=== PATIENT | male | born 1975 | race Hispanic/Latino ===

== ENCOUNTER 2024-11-05 11:03 | Emergency (ER) | payer BC ==
[~2024-11-05] VITALS: Ht 167.6 cm; Wt 83.0 kg
[~2024-11-05 11:03] MED LIST: ASPI-1005 PO; ATOR40TA69 PO; FURO20TA6 PO; GABA100C PO; GLYB-173 PO; LISI2.5T13 PO; METO25 PO
[2024-11-05 11:04] VITALS: TEMP 98.3
--- NOTE | 2024-11-05 11:11 | ERN ---
ED Note History of Present Illness Stated Complaint: HEADACHE Chief Complaint: Headache Time Seen by MD: 11:11 Dictation: PATIENT IS A 49-YEAR-OLD MALE COMING IN VIA EMS WITH COMPLAINTS OF RIDING IN A TRUCK WITH HIS BOSS THIS MORNING WHEN HE FELT DIZZY. NO CHEST PAIN NO BACK PAIN NO SOB HE DOES STATE HE HAS A MILD OCCIPITAL HEADACHE. STATES HE WAS CONCERNED BECAUSE HE HAD OPEN HEART SURGERY AT [facility] [place] TWO MONTHS AGO AND WANTED TO BE EVALUATED. HE HAS NOT TAKEN ANYTHING PRIOR TO ARRIVAL FOR PAIN, STATES HE IS COMPLIANT WITH HIS MEDICATIONS INCLUDING HIS DIABETIC MEDS. NIH IS 0 ON APPROACH. Allergies: Coded Allergies: No Known Drug Allergies (Verified Allergy, Unknown, 08/28/24) Home Meds Active Scripts Metoprolol Tartrate (Lopressor) 25 Mg Tab, 12.5 MG PO BID, #60 TAB 0 Refills Prov:SALOMÓN SWANSON MD 09/08/24 Gabapentin (Neurontin) 100 Mg Capsule, 100 MG PO TID, #90 CAP 0 Refills Prov:SALOMÓN SWANSON MD 09/08/24 Furosemide (Lasix 20Mg Tab) 20 Mg Tablet, 20 MG PO Q12H, #60 TAB 0 Refills Prov:SALOMÓN SWANSON MD 09/08/24 Atorvastatin Calcium (LIPITOR) 40 Mg Tablet, 40 MG PO HS, #30 TAB 0 Refills Prov:SALOMÓN SWANSON MD 09/08/24 Aspirin (ASPIRIN 81MG CHEW TAB) 81 Mg Tab.chew, 81 MG PO DAILY, #30 TAB.CHEW 0 Refills Prov:SALOMÓN SWANSON MD 09/08/24 Reported Medications Lisinopril (Lisinopril) 2.5 Mg Tablet, 1 TAB PO DAILY 08/29/24 Glyburide/Metformin HCl (Glyburide-Metformin 5-500 mg) 5 Mg-500 Mg Tablet, 1 TAB PO DAILY 08/29/24 Past Medical History Past Medical History: CAD, Diabetes-Type II Surgical History: None RN Note Reviewed/Agreed w/PFSH: Yes Review of System Dictation CONSTITUTIONAL: NEGATIVE EXCEPT FOR HPI HEAD/FACE: NEGATIVE EXCEPT FOR HPI EENT: NEGATIVE EXCEPT FOR HPI RESPIRATORY: NEGATIVE EXCEPT FOR HPI GASTROINTESTINAL/ABDOMINAL: NEGATIVE EXCEPT FOR HPI GENITOURINARY: NEGATIVE EXCEPT FOR HPI MUSCULOSKELETAL: NEGATIVE EXCEPT FOR HPI INTEGUMENTARY: NEGATIVE EXCEPT FOR HPI NEUROLOGICAL/PSYCH: NEGATIVE EXCEPT FOR HPI DIZZINESS/OCCIPITAL HEADACHE HEMATOLOGIC/LYMPHATIC: NEGATIVE EXCEPT FOR HPI ALL SYSTEMS NEGATIVE, EXCEPT NOTED ABOVE. 13 POINT REVIEW OF SYSTEMS ASSESSED AND ALL NEGATIVE EXCEPT FOR ABOVE. Initial Vital Sign VS Vital Signs Date Time Temp Pulse Resp B/P (MAP) Pulse Ox O2 Delivery O2 Flow Rate FiO2 11/05/24 11:04 98.2 78 18 133/77 97 Room Air 0 11/05/24 12:12 21 Physical Exam Dictation VITAL SIGNS REVIEWED GENERAL APPEARANCE: ALERT, ORIENTED X 3, MILD ACUTE DISTRESS, WELL DEVELOPED, NOURISHED. HEAD AND FACE: NON-TRAUMATIC. EYES: PERRL, PINK CONJUNCTIVAS, EYELID NO TRAUMA, ANTERIOR CHAMBER WITH ARCUS SENILIS. EARS: PINNAS INTACT AND NO SIGNS OF TRAUMA OR ERYTHEMA EAR CANALS CLEAR AND NO DISCHARGE TM NO ERYTHEMA NOSE: NO DISCHARGE, NO BLEEDING. OROPHARYNX: MOUTH NORMAL, TONGUE PINK, PHARYNX CLEAR,NO ERYTHEMA, TONSILS NO EXUDATES, NO ABSCESSES NOTED, MUCOUS MEMBRANE MOIST NECK: SUPPLE, NON-TENDER, NO THYROMEGALY, NO MASSES, NO JVD, NO BRUITS BREAST:DEFERRED CHEST:NO TENDERNESS, NO CREPITUS, NO PARADOXICAL MOVEMENT, NO RETRACTIONS LUNGS:CLEAR, WELL-VENTILATED, SYMMETRIC, NO RALES, NO WHEEZING, NO RHONCHI, NO STRIDOR, GOOD BREATH SOUNDS BILATERALLY HEART: REGULAR RATE, REGULAR RHYTHM, NO MURMUR, NO GALLOPS VASCULAR: NO PERIPHERAL EDEMA, ABDOMEN: SOFT, POSITIVE BOWEL SOUNDS, NONDISTENDED, NO GUARDING, NONTENDER, NO REBOUND, NO MASSES NO HEPATOMEGALY, NO SPLENOMEGALY, NO PALMER'S SIGN, NO HERNIAS. RECTAL: DEFERRED GENITAL: DEFERRED NEUROLOGICAL: NORMAL SPEECH, MOTOR FUNCTION INTACT, SENSORY FUNCTION INTACT NIH IS 0, INTACT MUSCULOSKELETAL: NECK NONTENDER, FULL RANGE OF MOTION, BACK NONTENDER, FULL RANGE OF MOTION, EXTREMITIES: NONTENDER, FULL RANGE OF MOTION SKIN: COLOR PINK, DRY, NO TURGOR, NO RASH, NO LACERATIONS, NO ABRASIONS, NO CONTUSIONS. LYMPHATIC: DEFERRED Results (Laboratory/Radiology) Laboratory/Radiology Laboratory Tests Test 11/05/24 10:20 White Blood Count 8.2 K/uL (4.8-10.8) Red Blood Count 4.53 MIL/uL (4.50-6.20) Hemoglobin 13.4 g/dL (14.0-18.0) L Hematocrit 39.4 % (42-54) L Mean Corpuscular Volume 87.0 fL (79-99) Mean Corpuscular Hemoglobin 29.6 pg (27.0-33.0) Mean Corpuscular Hemoglobin Concent 34.0 g/dL (32.0-36.0) Red Cell Distribution Width 12.7 % (11.0-15.5) Platelet Count 213 K/uL (130-400) Mean Platelet Volume 10.2 fL (7.5-10.5) Immature Granulocyte % (Auto) 0.4 % (0-1) Neutrophils (%) (Auto) 63.5 % (40.0-77.0) Lymphocytes (%) (Auto) 20.5 % (21.0-51.0) L Monocytes (%) (Auto) 9.0 % (3.0-13.0) Eosinophils (%) (Auto) 6.1 % (0.0-8.0) Basophils (%) (Auto) 0.5 % (0.0-5.0) Neutrophils # (Auto) 5.2 K/uL (1.8-7.7) Lymphocytes # (Auto) 1.7 K/uL (1.0-4.8) Monocytes # (Auto) 0.7 K/uL (0.1-1.0) Eosinophils # (Auto) 0.50 K/uL (0.00-0.70) Basophils # (Auto) 0.04 K/uL (0.00-0.20) Absolute Immature Granulocyte (auto 0.03 K/uL (0-1) Nucleated Red Blood Cells 0.0 % (0.0-0.19) Sodium Level 140 mmol/L (136-145) Potassium Level 3.9 mmol/L (3.5-5.1) Chloride Level 106 mmol/L (101-111) Carbon Dioxide Level 26 mmol/L (21-32) Blood Urea Nitrogen 20 mg/dL (7-18) H Creatinine 1.1 mg/dL (0.5-1.3) Glomerular Filtration Rate Calc 83 mL/min (>90) Random Glucose 196 mg/dL (70-105) H Total Calcium 9.2 mg/dL (8.5-10.1) Magnesium Level 1.80 mg/dL (1.80-2.40) Troponin I High Sensitivity 11 ng/L (4-75) 1202/CHEST X-RAY NEGATIVE Labs Reviewed?: Yes EKG Comment: EKG SINUS RHYTHM/HEART RATE 76/AXIS NORMAL/NONSPECIFIC CHANGES TO LEADS TWO AND THREE ED Course ED Course Orders Procedure Category Date Status Time Acetaminophen 500mg PHA 11/05/24 Complete Tab (Tylenol 500mg T 11:30 Cbc With Differential LAB 11/05/24 Complete 11:08 12 Lead Ekg Tracing- EKG 11/05/24 Complete Technical 11:08 Magnesium LAB 11/05/24 Complete 11:08 Troponin I High LAB 11/05/24 Complete Sensitivity 11:08 Basic Metabolic Panel LAB 11/05/24 Complete 11:08 Chest 1vw RAD 11/05/24 Taken 11:08 12 Lead Ekg Tracing- EKG 11/05/24 Logged Technical 11:08 Urinalysis Profile LAB 11/05/24 Logged 11:08 Current Medications Medications (Trade) Dose Ordered Sig/Gautam Route PRN Reason Start Time Stop Time Status Last Admin Dose Admin Acetaminophen (TYLenol 500MG TAB) 1,000 mg ONCE ONCE PO 11/05/24 11:30 11/05/24 11:31 DC 11/05/24 11:12 Vital Signs Date Time Temp Pulse Resp B/P (MAP) Pulse Ox O2 Delivery O2 Flow Rate FiO2 11/05/24 12:12 74 16 149/88 97 Room Air* 0 21 11/05/24 11:04 98.2 78 18 133/77 97 Room Air 0 1235/PATIENT NEUROLOGICALLY AND HEMODYNAMICALLY STABLE. STATES THE SENSATION HE WAS FEELING WHEN HE WAS IN THE TRUCK THIS MORNING IS NOW COMPLETELY RESOLVED. HE IS AWARE HE HAS NEGATIVE CARDIAC WORKUP HYPERGLYCEMIC HOWEVER HAS NOT TAKEN HIS GLIPIZIDE THIS MORNING OR EATEN. PATIENT WAS STRONGLY ADVISED TO LEAVE YOUR SEE HIS PRIMARY CARE DOCTOR TOMORROW. TAKE HIS DIABETIC MEDS DIRECTED WITH FOOD THIS MORNING. ALL QUESTIONS ANSWERED HEART Score Response (Comments) Value EKG: Repolarization changes 1 Age: 45-65yrs (+1) 1 Risk Factors: 1-2 risk factors (+1) 1 Initial Troponin: Normal limit (0) 0 Total 3 Medical Decision Making MDM MDM: DIFFERENTIAL DIAGNOSIS: ACS/AMI/ARRHYTHMIA/ELECTROLYTE IMBALANCE/DEHYDRATION/NEAR-SYNCOPE RATIONALE: TESTS CONSIDERED AND ORDERED SECONDARY TO SHARED DECISION MAKING INCLUDE: EKG/LABS PREVIOUS OUTSIDE RECORDS REVIEWED: OLD ER VISITS. RISK OF COMPLICATION AND/OR MORBIDITY OR MORTALITY OF PATIENT MANAGEMENT: NONE MEDICATIONS-PER MEDICATION RECONCILIATION NEED FOR HOSPITALIZATION: PATIENT DOES NOT MEET CRITERIA FOR HOSPITALIZATION. NONE NEED FOR EMERGENCY MAJOR/MINOR SURGERY: NO THERE ARE NO SOCIAL CONCERNS WITH THIS PATIENT. PRESCRIPTION DRUG MANAGEMENT NONE PRESCRIPTIONS WILL INCLUDE SYMPTOMATIC CARE PATIENT'S PRIOR EXTERNAL MEDICAL RECORDS FROM OTHER ER VISITS WERE REVIEWED BY ME INDICATED. PRIOR TESTING AND RESULTS FROM PREVIOUS VISITS WERE REVIEWED. PRIOR TESTS WERE TAKEN INTO ACCOUNT WITH MEDICAL DECISION MAKING AND RESOURCE UTILIZATION, INDEPENDENT HISTORIAN/HISTORIANS WERE USED TO OBTAIN COMPLETE MEDICAL HISTORY. I INDEPENDENTLY INTERPRETED THE TEST THAT WERE PERFORMED, RESULTS WERE REVIEWED BY ME AND CONSIDERED FINDINGS ON RADIOLOGY IF ORDERED. MEDICAL MANAGEMENT AND EXAMINATION INTERPRETATION DISCUSSIONS WERE HAD BY ME WITH OTHER QUALIFIED HEALTHCARE PROFESSIONALS INDICATED FOR THE PATIENT'S CARE. DX & DISP Disposition: Discharge Departure Impression: Primary Impression: Vasovagal near syncope Additional Impressions: Dehydration, Uncontrolled diabetes mellitus Condition: Stable Additional Instructions: FOLLOW-UP WITH PRIMARY CARE PROVIDER IN 1 TO 2 DAYS. TAKE MEDICATIONS DIRECTED HERE IN THE EMERGENCY ROOM. OKAY TO CONTINUE HOME MEDICATIONS UNLESS OTHERWISE DISCUSSED DURING YOUR VISIT IN THE EMERGENCY ROOM TODAY. RETURN TO YOUR NEAREST EMERGENCY ROOM IF SYMPTOMS WORSEN OR IF THERE IS NO IMPROVEMENT. CALL 911 IF YOU NEED IMMEDIATE ASSISTANCE. TAKE TYLENOL OR MOTRIN [id number] NEEDED AND IF NO CONTRAINDICATIONS ARE PRESENT. INCREASE ORAL HYDRATION. A WOUND CULTURE OR URINE CULTURE WAS ORDERED HERE IN THE EMERGENCY ROOM DEPARTMENT PLEASE FOLLOW-UP WITH PRIMARY CARE PROVIDER AND ADVISE THEM TO GET REPEAT PORTS FROM OUR FACILITY. IF YOU HAD ANY BERTA WRAP/SPLINTS THAT WERE APPLIED HERE, PLEASE DO NOT REMOVE THEM UNTIL YOU SEE YOUR PRIMARY CARE OR SPECIALTY. TAKE YOUR DIABETIC AND HIGH BLOOD PRESSURE MEDICATIONS DIRECTED FROM YOUR DOCTOR. NO WORK UNTIL CLEARED BACK BY YOUR PRIMARY CARE DOCTOR TOMORROW. INCREASE YOUR WATER INTAKE. Referrals: ANNE BALDERRAMA MD (PCP) Time of Disposition: 12:39 I have reviewed the case, and I agree with, Diagnosis and Plan NEVILLE BALDERRAMA NP Nov 05, 2024 11:11
--- NOTE | 2024-11-05 11:16 | EKG ---
[facility] Test Date: 2024-11-05 Test Time: 11:12:47 Pat Name: MAKENNA FATIMA Department: ED Room: Gender: M [employer]: [id number] : 1975 Requested By: NEVILLE BALDERRAMA Order Number: [id number] Reading MD: Robbin Gtz Measurements Intervals [place] Rate: 76 P: 44 [place]: 172 QRS: 10 QRSD: 107 T: -17 QT: 390 QTc: 438 Interpretive Statements Sinus rhythm Inferior infarct, age indeterminate Compared to ECG 09/03/2024 13:09:21 Myocardial infarct finding now present Intraventricular conduction delay no longer present T-wave abnormality no longer present Electronically Signed On 11-05-2024 19:47:20 CDT by Robbin Gtz Please click the below link to view image of tracing.
[2024-11-05 11:26] LABS: IMMATURE GRANULOCYTE ABSOLUTE 0.03 K/uL (0-1); NUCLEATED RED BLOOD CELLS 0.0 % (0.0-0.19); PLATELET COUNT (AUTO) 213 K/uL (130-400); RED BLOOD CELL COUNT(AUTO) 4.53 MIL/uL (4.50-6.20); RED CELL DISTRIBUTION WIDTH 12.7 % (11.0-15.5); WHITE BLOOD COUNT (AUTO) 8.2 K/uL (4.8-10.8)
[2024-11-05 11:37] LABS: CREATININE 1.1 mg/dL (0.5-1.3); GLOMERULAR FILTR. RATE CALC 83.0 mL/min (>90); GLUCOSE,RANDOM 196.0 mg/dL (70-105); SODIUM SERUM 140.0 mmol/L (136-145); UREA NITROGEN, BLOOD 20.0 mg/dL (7-18)
[2024-11-05 12:12] VITALS: BP 149/88; PULSE 74; RESP 16; O2SAT 97
--- NOTE | 2024-11-05 12:52 | HMCIMG ---
EXAM: CR Chest, 1 View. CLINICAL HISTORY: VERTIGO COMPARISON: None provided. FINDINGS: LUNGS: The lungs show no infiltrate or other acute finding. PLEURAL SPACES: No evidence of pleural effusion or pneumothorax. MEDIASTINUM: Prior sternotomy. Mild cardiomegaly. Pulmonary vasculature and interstitial markings are within normal limits. BONES: No acute osseous abnormality. IMPRESSION: No acute cardiopulmonary pathology is evident. Mild cardiomegaly. /[place]
== END 2024-11-05 12:50 | disposition home or self-care (01) ==
LOC: EDH 11:03
DX: R55 Syncope and collapse (principal); E86.0 Dehydration; E11.65 Type 2 diabetes mellitus with hyperglycemia; I25.10 Atherosclerotic heart disease of native coronary artery without angina pectoris; Z79.82 Long term (current) use of aspirin; Z79.84 Long term (current) use of oral hypoglycemic drugs; Z79.899 Other long term (current) drug therapy
CPT/HCPCS: 36415; 71045; 80048; 83735; 84484; 85025; 93005; 99284